=== PATIENT | female | born 1995 | race American Indian/Alaskan Native ===

== ENCOUNTER 2021-02-06 16:19 | Inpatient (IN) | payer MEDICAID, OTHER ==
[2021-02-06 17:56] LABS: Bacteria,Urine 1+ /HPF (Negative); Bilirubin,Urine NEG (Negative); Blood,Urine NEG (Negative); Color,Urine Yellow (Yellow); Mucus,Urine 1+ /HPF
[2021-02-06 17:59] LABS: Amphetamine Screen,Urine Negative; Benzodiazepines Screen,Urine Negative; Cocaine Screen,Urine Negative; Methadone Screen,Urine Negative; Opiate Screen,Urine Negative
[2021-02-06] MEDS ORDERED: LACTATED RINGERS 1,000 ML IV ONE (18:00)
[2021-02-06 19:08] LABS: Cannabinoid Screen,Urine Positive
--- NOTE | 2021-02-06 20:11 | Ultrasound Report ---
OB ultrasound INDICATION: Evaluate FINDINGS: Single live intrauterine in cephalic position. LAWSON measures 12.8 cm. Placenta gra de 2 anterior fundal placenta. heart rate 131. Cervix length 4.1 cm. The stomach, kidneys, blad torie, diaphragm, four-chamber heart, three-vessel cord appear normal. BPD measures 9.8 cm measuring 4 weeks 0 days. Head circumference 35.3 cm measuring 41 weeks 2 days. Femoral length 7.4 cm measuring 3 8 weeks 0 days. Head anatomy could not be visualized due to baby size. Spine visualization limited. IMPRESSION: Live intrauterine . No acute findings are seen. Heterogeneity cannot be visualized due to ba by size. Signer Name: Nael Barnard MD Signed: 02/06/2021 8:06 PM Workstation Name: [id number]
[2021-02-06] MEDS ORDERED: ONDANSETRON 4 MG/2 ML INJ IV PRN ×3 (20:31→22:53)
[2021-02-06] MEDS ORDERED: ACETAMINOPHEN 325 MG TAB PO PRN ×3 (20:31→22:53)
[2021-02-06] MEDS ORDERED: ALUM-MAG HYDROXIDE-SIMETHICONE 200-200-20MG/5ML ORAL LIQD 30 ML PO PRN (20:31)
[2021-02-06] MEDS ORDERED: fentaNYL 100 MCG/2 ML INJ IV PRN ×2 (20:42→21:50)
[2021-02-06] MEDS ORDERED: LACTATED RINGERS 1,000 ML IV SCH ×2 (20:45→22:00)
[2021-02-06 21:33] LABS: Basophils % (Auto) 0.4 % (0.0-1.8); Eosinophils % (Auto) 0.2 % (0.0-4.3); Hematocrit 34.3 % (30.3-42.9); Hemoglobin 11.4 gm/dl (10.1-14.3); Lymphocytes # (Auto) 1.8 K/mm3 (1.2-5.4); Lymphocytes % (Auto) 21.9 % (13.4-35.0); Mean Corpuscular HGB Conc 33 % (30-34); Mean Corpuscular Volume 85 fl (79-97); Monocytes # (Auto) 0.6 K/mm3 (0.0-0.8); Monocytes % (Auto) 7.7 % (0.0-7.3); Platelet Count 253 K/mm3 (140-440); Red Blood Count 4.02 M/mm3 (3.65-5.03)
[2021-02-06] MEDS: PRENATAL VIT27-FE FUMARATE-FOLIC ACID VIT TAB PO SCH (21:35)
[2021-02-06] MEDS ORDERED: BUTORPHANOL 2 MG/1 ML INJ IV PRN (21:50)
[2021-02-06] MEDS ORDERED: OXYTOCIN 10 UNIT/1 ML INJ IM PRN (21:50)
[2021-02-06] MEDS ORDERED: ePHEDrine SULFATE 50 MG/1 ML INJ IV PRN (21:50)
[2021-02-06] MEDS ORDERED: LIDOCAINE (2%) 20 MG/1 ML VIAL 20 ML MDV INFILTRATI ONE (21:50)
[2021-02-06] MEDS ORDERED: MINERAL OIL 30 ML ORAL LIQD PO PRN (21:50)
[2021-02-06] MEDS ORDERED: LOPERAMIDE 2 MG CAP PO PRN (21:50)
[2021-02-06] MEDS ORDERED: TERBUTALINE 1 MG/1 ML INJ SUB-Q PRN (21:50)
[2021-02-06] MEDS ORDERED: CARBOPROST TROMETHAMINE 250 MCG/1 ML INJ IM PRN (21:50)
[2021-02-06] MEDS ORDERED: NalbUPHINE 10 MG/1 ML INJ IV PRN (21:50)
[2021-02-06] MEDS ORDERED: METHYLERGONOVINE MALEATE 0.2 MG/ML VIAL IM PRN (21:50)
[2021-02-06] MEDS ORDERED: miSOPROStol 200 MCG TAB PR PRN (21:50)
[2021-02-06] MEDS ORDERED: OXYTOCIN DRIP 30 UNITS/500 ML BAG IV SCH ×2 (22:00)
[2021-02-06] MEDS ORDERED: AMPICILLIN/NS 2 GM/100 ML 2 GM/100 ML BAG IV ONE ×2 (22:14→22:15)
[2021-02-06 22:33] LABS: Hepatitis C Virus Antibody Non-Reactive (NonReactive)
--- NOTE | 2021-02-06 22:42 | History and Physical Report ---
History of Present Illness Date of examination: 02/06/21 Date of admission: 02/06/21 20:31 History of present illness: active labor no PNC unknown dates, 39 weeks by US on admission Past History Past Surgical History: no surgical history - Obstetrical History : 2 Para: 1 Medications and Allergies Allergies Allergy/AdvReac Type Severity Reaction Status Date / Time No Known Allergies Allergy Verified 02/06/21 17:31 Active Meds: Active Medications Acetaminophen (Acetaminophen 325 Mg Tab) 650 mg PO Q4H PRN PRN Reason: Pain MILD(1-3)/Fever >100.5/[place] Acetaminophen (Acetaminophen 325 Mg Tab) 650 mg PO Q4H PRN PRN Reason: Pain, Mild (1-3) Al Hydrox/Mg Hydrox/Simethicone (Alum-Mag Hydroxide-Simethicone 880-815-12of/5ml Oral Liqd 30 Ml) 30 ml PO Q6H PRN PRN Reason: Indigestion Butorphanol Tartrate (Butorphanol 2 Mg/1 Ml Inj) 1 mg IV Q2H PRN PRN Reason: Pain, Moderate(4-6) LABOR PAIN Carboprost Tromethamine (Carboprost Tromethamine 250 Mcg/1 Ml Inj) 250 mcg IM ONCE PRN PRN Reason: Uterine Bleeding Ephedrine Sulfate (Ephedrine Sulfate 50 Mg/1 Ml Inj) 10 mg IV Q2M PRN PRN Reason: Hypotension Fentanyl (Fentanyl 100 Mcg/2 Ml Inj) 100 mcg IV Q2H PRN PRN Reason: Labor Pain Fentanyl (Fentanyl 100 Mcg/2 Ml Inj) 100 mcg IV Q2H PRN PRN Reason: Pain,Severe (7-10) LABOR PAIN Lactated Ringer's (Lactated Ringers) 1,000 mls @ 125 mls/hr IV DIRECT LATASHA Last Admin: 02/06/21 21:35 Dose: 125 mls/hr Documented by: Oxytocin/Sodium Chloride (Pitocin/Ns 30 Unit/500ml) 30 units in 500 mls @ 2 mls/hr IV TITR LATASHA; Protocol Lactated Ringer's (Lactated Ringers) 1,000 mls @ 125 mls/hr IV DIRECT LATASHA Oxytocin/Sodium Chloride (Pitocin/Ns 30 Unit/500ml) 30 units in 500 mls @ 40 mls/hr IV TITR LATASHA; Protocol Loperamide HCl (Loperamide 2 Mg Cap) 2 mg PO ONCE PRN PRN Reason: give with Hemabate Methylergonovine Maleate (Methylergonovine Maleate 0.2 Mg/Ml Vial) 0.2 mg IM ONCE PRN PRN Reason: Uterine Bleeding Mineral Oil (Mineral Oil 30 Ml Oral Liqd) 30 ml PO QHS PRN PRN Reason: Constipation Misoprostol (Misoprostol 200 Mcg Tab) 800 mcg VT ONCE PRN PRN Reason: Uterine Bleeding Multivitamins/Iron/Calcium ( Fca51-Ft Fumarate-Folic Acid Vit Tab) 1 each PO QDAY LATASHA Last Admin: 02/06/21 21:35 Dose: 1 each Documented by: Nalbuphine HCl (Nalbuphine 10 Mg/1 Ml Inj) 10 mg IV Q2H PRN PRN Reason: Pain, Moderate (4-6) Ondansetron HCl (Ondansetron 4 Mg/2 Ml Inj) 4 mg IV Q8H PRN PRN Reason: Nausea And Vomiting Oxytocin (Oxytocin 10 Unit/1 Ml Inj) 10 unit IM ONCE PRN PRN Reason: Uterine Bleeding Terbutaline Sulfate (Terbutaline 1 Mg/1 Ml Inj) 0.25 mg SUB-Q ONCE PRN PRN Reason: Hyperstimulation/Hypertonicity - Vital Signs Vital signs: Vital Signs Pulse Pulse Ox 89 99 02/06/21 17:15 02/06/21 17:15 Temp Pulse Resp BP Pulse Ox 98.7 F 92 H 20 178/73 99 02/06/21 17:29 02/06/21 22:37 02/06/21 17:29 02/06/21 22:37 02/06/21 22:37 - Physical Exam Breasts: Positive: deferred Cardiovascular: Regular rate Abdomen: Positive: normal appearance, normal bowel sounds Genitourinary (Female): Positive: normal external genitalia, normal perenium Adnexa: both: normal Anus/Rectum: Positive: normal perianal skin Extremities: Positive: normal Deep Tendon Reflex Grade: Normal +2 - Obstetrical Cervical Dilatation: 5 Results Result Diagrams: 02/06/21 21:00 Abnormal lab results 02/06/21 02/06/21 Range/Units 21:00 Unknown [place] % (Auto) 7.7 H (0.0-7.3) % Urine WBC (Auto) 26.0 H (0.0-6.0) /HPF U Epithel Cells (Auto) 19.0 H (0-13.0) /HPF All other labs normal. Assessment and Plan admisson cfm Prental labs pain meds prn expect michelle Kevin MD
--- NOTE | 2021-02-06 22:52 | Procedure Note ---
OB Delivery Note - Delivery Date of Delivery: 02/06/21 Surgeon: ERIKA HERRERA Estimated blood loss: 200cc - Vaginal Delivery position: OA Intrapartum events: none Delivery induction: none Delivery augmentation: rupture of membranes Delivery monitor: external FHT, external uterine Route of delivery: Delivery placenta: spontaneous Delivery cord: 3 umbilical vessels Delivery laceration: 1st degree (perineal, hemosatis, did not require suture) Anesthesia: none Delivery comments: Patient pushed to delivery a viable male over an intact perineum. KELVIN, loose nuchal cord reduced after delivery. +ve meconium, spontaneous cry at delivery. Baby placed on maternal abdomen, NICU present for delivery. Delayed cord clamping ~1 minute, cord then clamped and cut and baby to warmer. Cord blood obtained. An intact placenta with three vessel cord delivered manually. Inspection of the perineum revealed a first degree hemostatic laceration which did not require repair. No other lacerations Firm fundus, EBL 200ml All sponge needle and instrument counts [id number] Mom and baby to no complications Michelle Herrera MD
[2021-02-06] MEDS ORDERED: HYDROcodone/ACETAMINOPHEN 5-325 MG TAB PO PRN (22:53)
[2021-02-06] MEDS ORDERED: WITCH HAZEL/ GLYCERIN PAD TP PRN (22:53)
[2021-02-06] MEDS ORDERED: diphenhydrAMINE 25 MG CAP PO PRN (22:53)
[2021-02-06] MEDS ORDERED: PROMETHAZINE 25 MG RECT SUPP PR PRN (22:53)
[2021-02-06] MEDS ORDERED: oxyCODONE /ACETAMINOPHEN 5-325MG TAB PO PRN (22:53)
[2021-02-06] MEDS ORDERED: PROMETHAZINE 25 MG TAB PO PRN (22:53)
[2021-02-06] MEDS ORDERED: LANOLIN/ZINC/DIMETHICONE (LANSINOH) 7 GM TP PRN (22:53)
[2021-02-06] MEDS ORDERED: MAGNESIUM HYDROXIDE (MOM) ORAL LIQD UDC PO PRN (22:53)
[2021-02-06] MEDS: IBUPROFEN 600 MG TAB PO SCH (23:05)
[2021-02-06] MEDS ORDERED: METHYLERGONOVINE MALEATE 0.2 MG/ML VIAL IM ONE (23:30)
[2021-02-07] MEDS ORDERED: METHYLERGONOVINE MALEATE 0.2 MG/ML VIAL IM ONE (00:38)
[2021-02-07 01:04] LABS: Hematocrit 34.3 % (30.3-42.9); Hemoglobin 11.4 gm/dl (10.1-14.3); Mean Corpuscular HGB Conc 33 % (30-34); Mean Corpuscular Volume 84 fl (79-97); Platelet Count 252 K/mm3 (140-440); Red Blood Count 4.07 M/mm3 (3.65-5.03); Red Cell Distribution Width 13.8 % (13.2-15.2)
[2021-02-07] MEDS: IBUPROFEN 600 MG TAB PO SCH ×4 (07:05→23:55)
[2021-02-07] MEDS: PRENATAL VIT27-FE FUMARATE-FOLIC ACID VIT TAB PO SCH (09:36)
--- NOTE | 2021-02-07 09:56 | Progress Note ---
Assessment and Plan A: S/P p: Continue routine pp care D/C home tomm if stable Subjective - Subjective Date of service: 02/07/21 Principal diagnosis: S/P Patient reports: appetite normal, voiding normally, pain well controlled, ambulating normally [place]: doing well, bottle feeding Objective - Vital Signs Latest vital signs: Vital Signs Temp Pulse Resp BP BP Pulse Ox Pulse Ox 02/07/21 08:00 98 02/07/21 07:49 97.9 F 73 19 116/76 99 02/07/21 04:00 98 02/07/21 03:05 76 102/59 02/07/21 03:04 98.1 F 18 02/07/21 02:07 79 99 02/07/21 02:03 71 114/68 02/07/21 02:02 77 99 02/07/21 01:57 84 98 02/07/21 01:52 83 99 02/07/21 01:47 79 99 02/07/21 01:42 79 99 02/07/21 01:37 84 99 02/07/21 01:32 71 99 02/07/21 01:29 75 118/64 02/07/21 01:27 78 98 02/07/21 01:22 80 99 02/07/21 01:17 82 99 02/07/21 01:12 73 99 02/07/21 01:09 74 112/67 02/07/21 01:07 87 99 02/07/21 01:02 86 100 02/07/21 00:57 71 100 02/07/21 00:52 72 98 02/07/21 00:49 72 112/65 02/07/21 00:47 74 99 02/07/21 00:42 73 99 02/07/21 00:37 79 99 02/07/21 00:32 75 99 02/07/21 00:29 77 115/73 94 02/07/21 00:27 79 99 02/07/21 00:22 98.1 F 83 100 02/07/21 00:17 79 98 02/07/21 00:12 78 99 02/07/21 00:10 68 122/71 02/07/21 00:07 81 98 02/07/21 00:02 68 99 02/06/21 23:57 81 100 02/06/21 23:52 100 H 100 02/06/21 23:49 79 112/72 02/06/21 23:47 80 98 02/06/21 23:42 81 97 02/06/21 23:37 89 98 02/06/21 23:32 73 98 02/06/21 23:29 81 117/66 02/06/21 23:27 77 99 02/06/21 23:22 79 99 02/06/21 23:17 89 98 02/06/21 23:12 84 98 02/06/21 23:09 89 106/56 02/06/21 23:07 89 97 02/06/21 23:02 81 98 02/06/21 22:57 81 100 02/06/21 22:53 87 94 02/06/21 22:52 85 99 02/06/21 22:47 95 H 134/68 99 02/06/21 22:42 96 H 99 02/06/21 22:37 92 H 178/73 99 02/06/21 22:32 83 99 02/06/21 22:27 90 99 02/06/21 22:22 91 H 98 02/06/21 22:17 94 H 97 02/06/21 22:12 79 99 02/06/21 22:09 84 120/78 02/06/21 22:07 89 99 02/06/21 21:54 104 H 97 02/06/21 21:49 84 100 02/06/21 21:44 85 98 02/06/21 21:39 90 100 02/06/21 21:34 89 99 02/06/21 21:29 81 99 02/06/21 20:56 85 99 02/06/21 20:51 86 98 02/06/21 20:46 76 99 02/06/21 20:41 81 100 02/06/21 20:36 81 99 02/06/21 20:31 84 100 02/06/21 20:26 87 100 02/06/21 20:21 79 100 02/06/21 20:16 85 100 02/06/21 20:11 83 100 02/06/21 20:06 77 99 02/06/21 20:01 75 100 02/06/21 19:56 86 99 02/06/21 19:51 81 100 02/06/21 19:46 82 100 02/06/21 19:41 80 100 02/06/21 19:36 82 100 02/06/21 19:05 78 100 02/06/21 19:00 75 100 02/06/21 18:55 66 99 02/06/21 18:50 86 98 02/06/21 18:45 73 99 02/06/21 18:40 73 99 02/06/21 18:35 81 99 02/06/21 18:30 79 99 02/06/21 18:25 77 99 02/06/21 18:20 81 99 02/06/21 18:15 84 98 02/06/21 18:10 76 98 02/06/21 18:05 83 97 02/06/21 18:00 83 98 02/06/21 17:55 95 H 98 02/06/21 17:50 83 98 02/06/21 17:45 83 99 02/06/21 17:40 85 99 02/06/21 17:35 100 H 98 02/06/21 17:30 81 98 02/06/21 17:29 98.7 F 83 20 116/74 98 02/06/21 17:25 94 H 99 02/06/21 17:20 86 98 02/06/21 17:16 88 116/74 02/06/21 17:15 89 99 Intake and Output 02/06/21 02/07/21 02/07/21 22:59 06:59 14:59 Intake Total 120 Output Total 900 Balance -780 Intake: Oral 120 Output: Urine 900 Void 900 Other: Total, Intake Amount 120 Total, Output Amount 900 # Voids Void 300 Weight 260 lb Estimated Blood Loss 200 - Exam Breasts: Present: normal Abdomen: Present: normal appearance, soft, normal bowel sounds Vulva: both: normal Uterus: Present: normal, firm, fundal height below umbilicus Extremities: Present: normal - Labs Labs: Abnormal lab results 02/06/21 02/06/21 Range/Units 21:00 Unknown [place] % (Auto) 7.7 H (0.0-7.3) % Urine WBC (Auto) 26.0 H (0.0-6.0) /HPF U Epithel Cells (Auto) 19.0 H (0-13.0) /HPF
--- NOTE | 2021-02-07 10:15 | Discharge Summary ---
Providers - Providers Date of Admission: 02/06/21 22:53 Date of discharge: 02/07/21 Attending physician: ERIKA HERRERA MD 02/07/21 08:27 Consult to Case Management [CONS] Routine Services Needed at Discharge: R And D Lab Technician Notified:: Yes Additional Physician Instructions: No PNC and +THC 02/07/21 10:07 Consult to Case Management [CONS] Routine Services Needed at Discharge: R And D Lab Technician Comment:: pos marijuana Primary care physician: ELIZABET VALDOVINOS MD Hospitalization Reason for admission: active labor, IUP at term Delivery: Episiotomy: none Laceration: none Other procedures: none complications: UTI Discharge diagnosis: IUP at term delivered [place] baby: male Hospital course: Pt was admitted to [facility] and had a . She was diag with a uti and tx with Macrobid. Pt's urine tested pos for marijuana and she was seen by SS. See H&P, delivery summary and pp notes. Condition at discharge: Stable Disposition: 01 HOME / SELF CARE / HOMELESS Plan - Discharge Medications Prescriptions: Nitrofurantoin [place]/M-Cryst [Macrobid CAP] 100 mg PO Q12HR #11 capsule Ibuprofen [Motrin 600 MG tab] 600 mg PO Q6HR PRN #30 tablet PRN Reason: Menstrual Cramps - Provider Discharge Summary Activity: routine, no sex for 6 weeks, no heavy lifting 4 weeks, no strenuous exercise Diet: routine Instructions: routine Additional instructions: [] Smoking cessation referral if applicable(refer to patient education folder for contact #) [] Refer to [facility]'s [facility] Booklet Call your doctor immediately for: * Fever > 100.5 * Heavy vaginal bleeding ( >1 pad per hour) * Severe persistent headache * Shortness of breath * Reddened, hot, painful area to leg or breast * Drainage or odor from incision. * Keep incision clean and dry at all times and follow doctor's instructions regarding bathing/showering - Follow up plan Follow up: ELIZABET VALDOVINOS MD [Primary Care Provider] - 6 Weeks
[2021-02-07] MEDS: NITROFURANTOIN MONOHYD/M-CRYST 100 MG CAP PO SCH ×2 (11:03→21:56)
[2021-02-07 11:16] LABS: Hematocrit 32.2 % (30.3-42.9)
[2021-02-08] MEDS: IBUPROFEN 600 MG TAB PO SCH ×2 (06:20→13:44)
[2021-02-08] MEDS: PRENATAL VIT27-FE FUMARATE-FOLIC ACID VIT TAB PO SCH (09:05)
[2021-02-08] MEDS: NITROFURANTOIN MONOHYD/M-CRYST 100 MG CAP PO SCH (09:05)
[2021-02-08 17:42] VITALS: BP 117/66
== END 2021-02-08 18:05 | disposition home or self-care (01) | DRG 805 ==
LOC: TRG 16:19 → APU 16:23 → TRG 20:31 → LD 20:31 → OBSVTOIN 22:53 → OB 02-07 03:30
PROVIDERS: ADMIT Obstetrics & Gynecology; ATTEND Obstetrics & Gynecology
PROC: 10E0XZZ Delivery of Products of Conception, External Approach (ICD-10-PCS; principal; 2021-02-06)
DX: O99.324 Drug use complicating childbirth (principal); O75.3 Other infection during labor; Z37.0 Single live birth; N39.0 Urinary tract infection, site not specified; O70.0 First degree perineal laceration during delivery; Z20.822 Contact with and (suspected) exposure to COVID-19; Z3A.39 39 weeks gestation of pregnancy; F12.90 Cannabis use, unspecified, uncomplicated
CPT/HCPCS: 36415; 59025; 76805; 80307; 81001; 85014; 85018; 85025; 85027; 86592; 86706; 86762; 86803; 86850; 86900; 86901; 87076; 87086; 87116; 87186; 87591; 87806; 96360; G0378; J0690; J2210; J2405; J2590; J7120; U0003